=== PATIENT | female | born 1945 | race Caucasian/White ===

== ENCOUNTER 2021-06-17 21:22 | Outpatient (CLI) | payer MEDICARE, OTHER | END 2021-06-17 23:59 | disposition critical access hospital (66) | LOC: EMS 21:22 | DX: R55 Syncope and collapse (principal); R53.1 Weakness; R10.9 Unspecified abdominal pain | CPT/HCPCS: A0425; A0427 ==

== ENCOUNTER 2021-06-17 21:50 | Emergency (ER) | payer MEDICARE, OTHER ==
[2021-06-17 22:23] LABS: BASOPHILS % (AUTO) 0.3 %; EOSINOPHILS # (AUTO) 0.3 10^3/uL (0.0-0.7); EOSINOPHILS % (AUTO) 2.6 %; HCT - HEMATOCRIT 35.7 % (37.0-47.0); HGB - HEMOGLOBIN 11.7 g/dL (12.0-16.0); LYMPHOCYTES # (AUTO) 1.7 10^3/uL (1.5-3.5); LYMPHOCYTES % (AUTO) 17.5 %; MEAN CORPUSCULAR HEMOGLOBIN 30.9 pg (27.0-31.0); MEAN CORPUSCULAR HGB CONC 32.8 g/dL (32.0-36.0); MEAN CORPUSCULAR VOLUME 94.2 fL (81.0-99.0); MEAN PLATELET VOLUME 10.1 fL (7.9-10.8); MONOCYTES # (AUTO) 0.8 10^3/uL (0.0-1.0); MONOCYTES % (AUTO) 8.3 %; NEUTROPHILS # (AUTO) 6.8 10^3/uL (1.5-6.6); NEUTROPHILS % (AUTO) 70.9 %; PLT - PLATELET COUNT 223 10^3/uL (130-450); RED BLOOD COUNT 3.79 10^6/uL (4.20-5.40); RED CELL DISTRIBUTION WIDTH 14.1 % (12.0-15.0); WHITE BLOOD COUNT 9.6 x10^3/uL (4.8-10.8)
[2021-06-17 22:34] LABS: ALBUMIN 4.3 g/dL (3.2-5.5); ALBUMIN/GLOBULIN RATIO 1.7 (1.0-2.2); BILIRUBIN,TOTAL 0.9 mg/dL (0.2-1.0); CALCIUM 9.4 mg/dL (8.5-10.3); CREATININE 1.1 mg/dL (0.4-1.0); POTASSIUM 4.4 mmol/L (3.5-5.0); TOTAL PROTEIN 6.8 g/dL (6.7-8.2)
[2021-06-17] MEDS ORDERED: SODIUM CHLORIDE 0.9% 500 ML IV STA (22:41)
[2021-06-17] MEDS ORDERED: ONDANSETRON 4 MG/2 ML VIAL IVP STA (22:41)
--- NOTE | 2021-06-17 23:12 | ED Physician Documentation ---
History of Present Illness - Stated complaint Stated Complaint: ABD PX/NAUSEA - Chief complaint Chief Complaint: Trauma Ext - History obtained from History obtained from: Patient - Additonal information Additional information: 75-year-old woman with history of high blood pressure and depression on lisinopril, amlodipine, Celexa, presents with syncopal episode at the grocery store today. Patient states that she went to the bathroom and had bowel movement then came out, became lightheaded and fainted. On EMS arrival she fainted twice more. Patient endorses mild pain to the left ankle and left knee where she thinks she hit it. pain only occurs with ROM and is minimal. Ambulatory on the left leg without difficulty. Patient had second loose stool in the ED. also with mild nausea. denies fever, back pain, urinary sx, fnd. did not bite tongue, no incontinence. Review of Systems Ten Systems: 10 systems reviewed and negative Constitutional: denies: Fever, Chills Cardiac: denies: Chest pain / pressure Respiratory: denies: Dyspnea GI: reports: Nausea, Diarrhea. denies: Vomiting Musculoskeletal: reports: Extremity pain Neurologic: reports: Syncope PD PAST MEDICAL HISTORY - Past Medical History Past Medical History: Yes Cardiovascular: Hypertension GI: GERD Psych: Depression, Anxiety - Past Surgical History Past Surgical History: Yes Ortho: Knee replacement, Spine surgery - Present Medications Home Medications: Ambulatory Orders Medication Instructions Recorded Confirmed Amlodipine Besylate [Norvasc] 5 mg PO DAILY 06/17/21 06/17/21 Citalopram Hydrobromide 30 mg PO DAILY 06/17/21 06/17/21 [Citalopram HBr] Diclofenac Sodium Dr [Voltaren] 75 mg PO DAILY 06/17/21 06/17/21 Lansoprazole [Prevacid] 30 mg PO DAILY 06/17/21 06/17/21 Lisinopril [Zestril] 40 mg PO DAILY 06/17/21 06/17/21 - Allergies Allergies/Adverse Reactions: Allergies Allergy/AdvReac Type Severity Reaction Status Date / Time Iodine and Iodide Containing Allergy Headache Verified 06/17/21 22:15 Produc - Social History Does the pt smoke?: No Smoking Status: Never smoker Does the pt drink ETOH?: Yes ETOH Use: Wine, Liquor Does the pt have substance abuse?: No - Immunizations Immunizations are current?: No Immunizations: TDAP >10years/unknown - POLST Patient has POLST: No PD ED PE NORMAL - Vitals Vital signs reviewed: Yes - General General: Alert and oriented X 3, No acute distress, Well developed/nourished - HEENT HEENT: Atraumatic, PERRL, EOMI - Neck Neck: Supple, no meningeal sign - Cardiac Cardiac: RRR - Respiratory Respiratory: No respiratory distress, Clear bilaterally - Abdomen Abdomen: Non tender, Non distended - Derm Derm: Normal color, Warm and dry - Extremities Extremities: No deformity - Neuro Neuro: Alert and oriented X 3, trestle mechanic 2-12 intact, No motor deficit, No sensory deficit, Normal speech Eye Opening: Spontaneous Motor: Obeys Commands Verbal: Oriented GCS Score: 15 - Psych Psych: Normal mood, Normal affect Results - Vitals Vitals: Vital Signs - 24 hr 06/17/21 06/17/21 06/17/21 21:50 22:39 22:51 Temperature 36.7 C Heart Rate 85 102 H 94 Respiratory 24 16 21 Rate Blood Pressure 132/74 H 144/81 H 144/81 H O2 Saturation 100 99 98 Oxygen O2 Source Room air - EKG (time done) 2156 Rate: Rate (enter#) (78) Rhythm: NSR [place]: Normal Intervals: Normal [place] QRS: Normal Ischemia: Normal ST segments Computer interpretation: Agree with computer - Labs Labs: Laboratory Tests 06/17/21 06/17/21 22:13 22:13 WBC 9.6 RBC 3.79 L Hgb 11.7 L Hct 35.7 L MCV 94.2 MCH 30.9 MCHC 32.8 RDW 14.1 Plt Count 223 MPV 10.1 Neut # (Auto) 6.8 H Lymph # (Auto) 1.7 [place] # (Auto) 0.8 Eos # (Auto) 0.3 Baso # (Auto) 0.0 Absolute Nucleated RBC 0.00 Nucleated RBC % 0.0 Sodium 137 Potassium 4.4 Chloride 99 L Carbon Dioxide 27 Anion Gap 11.0 BUN 19 Creatinine 1.1 H Estimated GFR (MDRD) 49 L Glucose 120 H Calcium 9.4 Total Bilirubin 0.9 AST 25 ALT 13 Alkaline Phosphatase 66 Total Protein 6.8 Albumin 4.3 Globulin 2.5 Albumin/Globulin Ratio 1.7 Lipase 40 PD MEDICAL DECISION MAKING - ED course ED course: 75yF p/w syncopal episode today after having a BM. otherwise had been feeling normal prior to this. does state she "felt a little off" yesterday but no specific symptoms. Primary doctor is in [place] and she has an appointment when she returns there at the end of the month. d/w patient that her ekg was normal, cardiac monitoring has been unremarkable, but she should consider follow up for echo and holter monitoring. Patient is low risk per [place] syncope rules therefore return precautions were given and she will f.u outpatient. referral to pcp here given. Departure - Departure Disposition: Home, Self Care Clinical Impression: Syncope, Nausea, Ankle injury, Loose stools Condition: Good Instructions: Syncope, ED RICE Follow-Up: Matt Dobbs MD [Physician No Access] - Comments: You are seen in the emergency department for evaluation of a fainting episode. Your lab work and EKG uncovered no emergent cause for your symptoms. Please follow-up with your primary doctor. You can also follow-up with Dr. Dobbs, our local provider combination welder apprentice for ED follow-ups. Return to the emergency department if you have any new or worsening symptoms or other concerns.
--- NOTE | 2021-06-17 23:33 | XRAY Report ---
PROCEDURE: Ankle 3 View LT INDICATIONS: ankle pain TECHNIQUE: 3 views of the ankle were acquired. COMPARISON: None FINDINGS: Bones: No fractures or dislocations. Ankle mortise is normally aligned. No suspicious bony lesions . Soft tissues: No tibiotalar joint effusion. Achilles tendon appears normal. IMPRESSION: No acute fracture. No osseous lesion. If symptoms and/or clinical suspicion for patholog y continue, further assessment with repeat plain films, or advanced imaging (e.g., CT, MRI, or bone s can) is recommended for further assessment. Reviewed by: Dwaine Durant MD on 06/17/2021 11:33 PM [facility] Approved by: Dwaine Durant MD on 06/17/2021 11:33 PM PST Station ID: [id number]
--- NOTE | 2021-06-17 23:33 | XRAY Report ---
PROCEDURE: Knee 2 View LT INDICATIONS: knee pain TECHNIQUE: 2 views of the left knee(s) were acquired. COMPARISON: None. FINDINGS: Bones: Knee arthroplasty has been performed. No fractures or dislocations. No suspicious bony lesio ns. Soft tissues: No joint effusion. No suspicious soft tissue calcifications. IMPRESSION: No acute fracture. No osseous lesion. If symptoms and/or clinical suspicion for patholog y continue, further assessment with repeat plain films, or advanced imaging (e.g., CT or bone scan) i s recommended for further assessment. Reviewed by: Dwaine Durant MD on 06/17/2021 11:32 PM [facility] Approved by: Dwaine Durant MD on 06/17/2021 11:32 PM [facility] Station ID: [id number]
[2021-06-17 23:55] VITALS: BP 131/87
== END 2021-06-17 23:45 | disposition home or self-care (01) ==
LOC: EDBD → ED 21:50
DX: R55 Syncope and collapse (principal); R11.0 Nausea; M25.572 Pain in left ankle and joints of left foot; R19.7 Diarrhea, unspecified; I10 Essential (primary) hypertension
CPT/HCPCS: 36415; 80053; 83690; 85025; 93005; 96374; 99284